=== PATIENT | male | born 1960 | race African-American/Black ===

== ENCOUNTER 2016-09-10 14:33 | Inpatient (IN) | payer MEDICARE, OTHER ==
[~2016-09-10] VITALS: Ht 185.4 cm; Wt 95.3 kg
[~2016-09-10 14:33] MED LIST: AMLO10TA80 PO; ATEN-42 PO; ATOR10TA69 PO; CALC667T5 PO; CINA30 PO; HYDR-3933 PO; INSASP SQ; LEVVL SQ; LOPE2CAP PO; METO10TA3 PO; NEPVIT PO; PIOG30TA27 PO
[2016-09-10] MEDS ORDERED: SODIUM CHLORIDE 0.9% 1,000 ML IV ONE (16:52)
[2016-09-10] MEDS ORDERED: MORPHINE SULFATE 4 MG/ML CPJ (NOT FOR IM USE) IV STA (16:52)
[2016-09-10] MEDS ORDERED: ONDANSETRON HCL 4MG/2ML VIAL IV STA (16:52)
[2016-09-10] MEDS ORDERED: FAMOTIDINE 20MG/2ML VIAL IV STA (16:52)
[2016-09-10 17:35] LABS: CHLORIDE 84 mEq/L (98-107); INDEX HEMOLYSI 1 (1-3); INDEX ICTERIC 1 (1-4); INDEX LIPEMIC 1 (1-3)
[2016-09-10 17:38] LABS: INR 1.1; PARTIAL THROMBOPLASTIN TIME 24.5 sec (24.0-34.0); PROTHROMBIN TIME 11.6 sec
[2016-09-10 17:43] LABS: ALANINE AMINOTRANSFERASE 23 IU/L (13-61); ANION GAP 23; BASOPHILS % 0.2 % (0.0-2.0); CALCIUM 10.7 mg/dL (8.5-10.1); CARBON DIOXIDE 27 mEq/L (21-32); HEMATOCRIT. 43.5 % (42.0-52.0); HEMOGLOBIN. 14.3 g/dL (14.0-18.0); LIPASE 346 IU/L (73-393); LYMPHOCYTES % 7.5 % (20.0-50.0); MEAN CORPUSCULAR HEMOGLOBIN 32.3 pg (28.0-32.0); MEAN CORPUSCULAR HGB CONC 32.8 g/dL (31.0-37.0); MEAN CORPUSCULAR VOLUME 98.4 fL (80.0-94.0); MEAN PLATELET VOLUME 8.6 fl (7.4-10.4); MONOCYTES % 5.3 % (2.0-8.0); PLATELET 212 x1000/uL (130-400); RED BLOOD CELL COUNT 4.42 mill/uL (4.7-6.1); RED CELL DISTRIBUTION WIDTH 19.1 % (11.6-14.6); UREA NITROGEN BLOOD 46 mg/dL (7-21); WHITE BLOOD COUNT 11.3 x1000/uL (4.5-11.0); eGFR 9 mL/min (>60)
[2016-09-10] MEDS ORDERED: MORPHINE SULFATE 2 MG/ML CPJ (NOT FOR IM USE) IV ONE (20:15)
[2016-09-10] MEDS ORDERED: LEVOFLOXACIN 750MG PREMIX 150 ML IV ONE (20:15)
[2016-09-10] MEDS ORDERED: ONDANSETRON HCL 4MG/2ML VIAL IV ONE (20:15)
[2016-09-10] MEDS ORDERED: METRONIDAZOLE 500 MG PREMIX 100 ML IV ONE (20:15)
[2016-09-10] MEDS ORDERED: METOCLOPRAMIDE HCL 10MG/2ML VIAL IV ONE (23:30)
[2016-09-10] MEDS ORDERED: INSULIN REGULAR (HUMULIN R) 300UNITS/3ML SUBCUT ONE (23:30)
[2016-09-10] MEDS ORDERED: GUAIFENESIN 200MG/10ML SUGAR FREE UDC PO PRN (23:45)
[2016-09-10] MEDS ORDERED: NA PHOS,M-B/NA PHOS,DI-BA ENEMA 118ML PR PRN (23:45)
[2016-09-10] MEDS ORDERED: MAGNESIUM/ALUMINUM HYDROXIDE/SIMETHICONE 30ML UDC PO PRN (23:45)
[2016-09-10] MEDS ORDERED: CLONIDINE 0.1MG TABLET PO PRN (23:45)
[2016-09-10] MEDS ORDERED: IPRATROPIUM/ALBUTEROL 0.5-3(2.5)MG/3ML NEB INH PRN (23:45)
[2016-09-10] MEDS ORDERED: DOCUSATE SODIUM 100MG CAPSULE PO PRN (23:45)
[2016-09-10] MEDS ORDERED: LORAZEPAM 2MG/ML CPJ IV PRN (23:45)
[2016-09-10] MEDS ORDERED: ACETAMINOPHEN 325MG TABLET PO PRN (23:45)
[2016-09-10] MEDS ORDERED: HYDROCODONE/ACETAMINOPHEN 10/325MG TABLET PO PRN (23:45)
[2016-09-10] MEDS ORDERED: DIPHENHYDRAMINE 50MG/ML VIAL IV PRN (23:45)
[2016-09-11] MEDS ORDERED: POTASSIUM CHLORIDE 20MEQ TABLET SR PO NR (00:25)
[2016-09-11] MEDS ORDERED: POTASSIUM CHLORIDE 20MEQ TABLET SR PO STA (00:29)
[2016-09-11 00:47] LABS: CALCIUM 9.9 mg/dL (8.5-10.1)
[2016-09-11] MEDS ORDERED: POTASSIUM CHLORIDE 20 MEQ/PACKET PO NR (01:00)
[2016-09-11 02:20] VITALS: BP 165/97
[2016-09-11] MEDS: ONDANSETRON HCL 4MG/2ML VIAL IV PRN ×3 (02:52→22:27)
[2016-09-11] MEDS: HYDROMORPHONE HCL/PF 2MG/ML CPJ IV PRN ×4 (02:53→22:28)
[2016-09-11] MEDS ORDERED: METRONIDAZOLE 500 MG PREMIX 100 ML IV SCH ×2 (06:00→14:00)
[2016-09-11] MEDS ORDERED: LOPERAMIDE HCL 2MG CAPSULE PO PRN (06:15)
[2016-09-11 07:25] LABS: CHLORIDE 93 mEq/L (98-107); INDEX HEMOLYSI 2 (1-3); INDEX ICTERIC 1 (1-4); INDEX LIPEMIC 1 (1-3)
[2016-09-11 08:00] VITALS: BP 132/89
[2016-09-11 08:06] LABS: ALANINE AMINOTRANSFERASE 21 IU/L (13-61); ALBUMIN 3.8 g/dL (3.4-5.0); ANION GAP 19; CALCIUM 9.1 mg/dL (8.5-10.1); CARBON DIOXIDE 25 mEq/L (21-32); HDL CHOLESTEROL 55 mg/dL (40-59); LDL CHOLESTEROL 80 mg/dL (5-100); TRIGLYCERIDE 120 mg/dL (0-150); UREA NITROGEN BLOOD 55 mg/dL (7-21); eGFR 8 mL/min (>60)
[2016-09-11] MEDS: ENOXAPARIN 30MG/0.3ML SYR SUBCUT SCH (09:03)
[2016-09-11] MEDS: ATORVASTATIN CALCIUM 10MG TABLET PO SCH (09:03)
[2016-09-11] MEDS: AMLODIPINE 10MG TABLET PO SCH (09:03)
[2016-09-11] MEDS: ATENOLOL 25MG TABLET PO SCH (09:04)
[2016-09-11] MEDS: CINACALCET HCL 30MG TABLET PO SCH (09:04)
[2016-09-11] MEDS: METOCLOPRAMIDE HCL 10MG TABLET PO SCH (09:04)
[2016-09-11 09:28] LABS: BASOPHILS % 0.3 % (0.0-2.0); HEMATOCRIT. 40.1 % (42.0-52.0); HEMOGLOBIN. 13.1 g/dL (14.0-18.0); LYMPHOCYTES % 16.4 % (20.0-50.0); MEAN CORPUSCULAR HGB CONC 32.6 g/dL (31.0-37.0); MEAN CORPUSCULAR VOLUME 98.4 fL (80.0-94.0); MEAN PLATELET VOLUME 8.2 fl (7.4-10.4); MONOCYTES % 7.6 % (2.0-8.0); NEUTROPHILS % 75.7 % (40.0-76.0); PLATELET 195 x1000/uL (130-400); RED BLOOD CELL COUNT 4.08 mill/uL (4.7-6.1); RED CELL DISTRIBUTION WIDTH 19.4 % (11.6-14.6); WHITE BLOOD COUNT 9.2 x1000/uL (4.5-11.0)
[2016-09-11] MEDS: PIOGLITAZONE 30MG TABLET PO SCH (10:47)
[2016-09-11 12:00] VITALS: BP 142/88
[2016-09-11] MEDS ORDERED: DEXTROSE 50% WATER 50ML SYRINGE IV PRN (12:45)
[2016-09-11] MEDS: BLOOD SUGAR DIAGNOSTIC STRIP TEST SCH ×3 (12:59→21:00)
[2016-09-11] MEDS: INSULIN LISPRO 100 UNITS/ML SUBCUT SCH ×3 (13:02→22:19)
[2016-09-11] MEDS: METRONIDAZOLE 500 MG PREMIX 100 ML IV SCH (13:04)
[2016-09-11 16:00] VITALS: BP 104/69
[2016-09-11 20:00] VITALS: BP 96/50
[2016-09-11] MEDS: INSULIN DETEMIR UD 100 UNITS/ML SYR SUBCUT SCH (22:18)
[2016-09-12] VITALS: BP 88/50
[2016-09-12 04:00] VITALS: BP 118/84
[2016-09-12] MEDS: METRONIDAZOLE 500 MG PREMIX 100 ML IV SCH ×2 (04:13→14:09)
[2016-09-12] MEDS: INSULIN LISPRO 100 UNITS/ML SUBCUT SCH ×4 (07:50→22:40)
[2016-09-12 08:00] VITALS: BP 113/69
[2016-09-12] MEDS: BLOOD SUGAR DIAGNOSTIC STRIP TEST SCH ×4 (08:14→21:00)
[2016-09-12] MEDS: METOCLOPRAMIDE HCL 10MG TABLET PO SCH (08:31)
[2016-09-12] MEDS: CINACALCET HCL 30MG TABLET PO SCH (08:31)
[2016-09-12] MEDS: ATORVASTATIN CALCIUM 10MG TABLET PO SCH (08:32)
[2016-09-12] MEDS: PIOGLITAZONE 30MG TABLET PO SCH (08:32)
[2016-09-12] MEDS: ATENOLOL 25MG TABLET PO SCH (08:55)
[2016-09-12] MEDS: AMLODIPINE 10MG TABLET PO SCH (08:55)
[2016-09-12] MEDS: ENOXAPARIN 30MG/0.3ML SYR SUBCUT SCH (09:16)
[2016-09-12] MEDS: HYDROMORPHONE HCL/PF 2MG/ML CPJ IV PRN ×2 (10:18→21:02)
[2016-09-12] MEDS: ONDANSETRON HCL 4MG/2ML VIAL IV PRN ×2 (10:18→21:02)
[2016-09-12 12:09] VITALS: BP 111/70
[2016-09-12 12:43] LABS: BASOPHILS % 0.4 % (0.0-2.0); EOSINOPHILS % 0.1 % (0.0-5.0); HEMATOCRIT. 37.2 % (42.0-52.0); HEMOGLOBIN. 12.3 g/dL (14.0-18.0); LYMPHOCYTES % 19.6 % (20.0-50.0); MEAN CORPUSCULAR HEMOGLOBIN 32.4 pg (28.0-32.0); MEAN CORPUSCULAR VOLUME 98.2 fL (80.0-94.0); MEAN PLATELET VOLUME 8.7 fl (7.4-10.4); MONOCYTES % 8.5 % (2.0-8.0); NEUTROPHILS % 71.4 % (40.0-76.0); PLATELET 173 x1000/uL (130-400); RED BLOOD CELL COUNT 3.79 mill/uL (4.7-6.1); WHITE BLOOD COUNT 7.4 x1000/uL (4.5-11.0)
[2016-09-12 12:53] LABS: CALCIUM 8.3 mg/dL (8.5-10.1)
[2016-09-12 16:00] VITALS: BP 85/50
[2016-09-12] MEDS ORDERED: LEVOFLOXACIN 250MG PREMIX 50 ML IV SCH ×2 (16:00→20:00)
[2016-09-12 20:00] VITALS: BP 102/73
[2016-09-12] MEDS: INSULIN DETEMIR UD 100 UNITS/ML SYR SUBCUT SCH (22:40)
[2016-09-13] VITALS: BP 107/75
[2016-09-13] MEDS: METRONIDAZOLE 500 MG PREMIX 100 ML IV SCH (01:59)
[2016-09-13 04:00] VITALS: BP 99/60
[2016-09-13] MEDS: HYDROMORPHONE HCL/PF 2MG/ML CPJ IV PRN (04:11)
[2016-09-13 06:09] LABS: BASOPHILS % 0.5 % (0.0-2.0); EOSINOPHILS % 0.3 % (0.0-5.0); HEMATOCRIT. 36.4 % (42.0-52.0); HEMOGLOBIN. 11.8 g/dL (14.0-18.0); LYMPHOCYTES % 24.7 % (20.0-50.0); MEAN CORPUSCULAR HEMOGLOBIN 32.2 pg (28.0-32.0); MEAN CORPUSCULAR HGB CONC 32.5 g/dL (31.0-37.0); MEAN CORPUSCULAR VOLUME 99.2 fL (80.0-94.0); MEAN PLATELET VOLUME 8.3 fl (7.4-10.4); MONOCYTES % 8.8 % (2.0-8.0); NEUTROPHILS % 65.7 % (40.0-76.0); PLATELET 172 x1000/uL (130-400); RED BLOOD CELL COUNT 3.68 mill/uL (4.7-6.1); RED CELL DISTRIBUTION WIDTH 18.9 % (11.6-14.6); WHITE BLOOD COUNT 7.5 x1000/uL (4.5-11.0)
[2016-09-13] MEDS: BLOOD SUGAR DIAGNOSTIC STRIP TEST SCH (06:22)
[2016-09-13 06:52] LABS: CALCIUM 8.1 mg/dL (8.5-10.1)
[2016-09-13 08:00] VITALS: BP 106/64
[2016-09-13] MEDS: CINACALCET HCL 30MG TABLET PO SCH (08:33)
[2016-09-13] MEDS: PIOGLITAZONE 30MG TABLET PO SCH (08:33)
[2016-09-13] MEDS: ATORVASTATIN CALCIUM 10MG TABLET PO SCH (08:33)
[2016-09-13] MEDS: METOCLOPRAMIDE HCL 10MG TABLET PO SCH (08:33)
[2016-09-13] MEDS: ATENOLOL 25MG TABLET PO SCH (08:35)
[2016-09-13] MEDS: AMLODIPINE 10MG TABLET PO SCH (08:35)
[2016-09-13] MEDS: INSULIN LISPRO 100 UNITS/ML SUBCUT SCH (08:37)
[2016-09-13] MEDS: ENOXAPARIN 30MG/0.3ML SYR SUBCUT SCH (08:39)
[2016-09-13] MEDS ORDERED: POTASSIUM CHLORIDE 20MEQ TABLET SR PO NR (10:00)
[2016-09-13 11:18] VITALS: BP 106/64
[2016-09-13 12:00] VITALS: BP 109/59
== END 2016-09-13 12:25 | disposition home or self-care (01) | DRG 73 ==
LOC: ER 15:52 → 6EST 21:22
PROVIDERS: ADMIT Internal Medicine; ATTEND Internal Medicine
PROC: 5A1D00Z (ICD-10-PCS; principal; 2016-09-12)
DX: E11.43 Type 2 diabetes mellitus with diabetic autonomic (poly)neuropathy (principal); N18.6 End stage renal disease; K86.1 Other chronic pancreatitis; E46 Unspecified protein-calorie malnutrition; I12.0 Hypertensive chronic kidney disease with stage 5 chronic kidney disease or end stage renal disease; K56.7 Ileus, unspecified; K31.84 Gastroparesis; E87.6 Hypokalemia; E86.0 Dehydration; E83.52 Hypercalcemia; D64.9 Anemia, unspecified; E11.22 Type 2 diabetes mellitus with diabetic chronic kidney disease; E11.42 Type 2 diabetes mellitus with diabetic polyneuropathy; E78.5 Hyperlipidemia, unspecified; G89.4 Chronic pain syndrome; K52.9 Noninfective gastroenteritis and colitis, unspecified; Z86.718 Personal history of other venous thrombosis and embolism; Z99.2 Dependence on renal dialysis; Z95.1 Presence of aortocoronary bypass graft; Z68.27 Body mass index [BMI] 27.0-27.9, adult; Z79.4 Long term (current) use of insulin; Z79.899 Other long term (current) drug therapy; I25.2 Old myocardial infarction
CPT/HCPCS: 36415; 74176; 80048; 80053; 80061; 82962; 83690; 85025; 85610; 85730; 93005; 96365; 96367; 96375; 96376; 99285; C1893; J1170; J1650; J1815; J1956; J2270; J2405; J2765; J3490; J7030; J7040; J8597

== ENCOUNTER → 2016-12-20 | Outpatient (CLI) | payer MEDICARE, OTHER | END | disposition home or self-care (01) | LOC: RAD 09:30 | PROVIDERS: ATTEND Specialist | DX: M25.532 Pain in left wrist (principal); M25.571 Pain in right ankle and joints of right foot; M77.51 Other enthesopathy of right foot and ankle; M79.89 Other specified soft tissue disorders | CPT/HCPCS: 73110; 73610 ==

== ENCOUNTER 2017-03-08 05:09 | Inpatient (IN) | payer MEDICARE, OTHER ==
[~2017-03-08] VITALS: Ht 185.4 cm; Wt 91.2 kg
[~2017-03-08 05:09] MED LIST changes: -HYDR-3933 PO; +HYDR-4009 PO
[2017-03-08] MEDS ORDERED: ONDANSETRON HCL 4MG/2ML VIAL IV STA (08:17)
[2017-03-08] MEDS ORDERED: MORPHINE SULFATE 4 MG/ML CPJ (NOT FOR IM USE) IV STA (08:17)
[2017-03-08 09:14] LABS: BASOPHILS % 0.5 % (0.0-2.0); EOSINOPHILS % 0.4 % (0.0-5.0); HEMOGLOBIN. 7.5 g/dL (14.0-18.0); LYMPHOCYTES % 18.7 % (20.0-50.0); MEAN CORPUSCULAR HEMOGLOBIN 34.7 pg (28.0-32.0); MEAN CORPUSCULAR VOLUME 105.8 fL (80.0-94.0); MEAN PLATELET VOLUME 7.5 fl (7.4-10.4); MONOCYTES % 4.7 % (2.0-8.0); NEUTROPHILS % 75.7 % (40.0-76.0); PLATELET 246 x1000/uL (130-400); RED BLOOD CELL COUNT 2.17 mill/uL (4.7-6.1); RED CELL DISTRIBUTION WIDTH 20.3 % (11.6-14.6)
[2017-03-08 09:29] LABS: CARBON DIOXIDE 28 mEq/L (21-32); CHLORIDE 98 mEq/L (98-107)
[2017-03-08 09:55] LABS: INR 2.9; PARTIAL THROMBOPLASTIN TIME 32.5 sec (23.4-31.0); PROTHROMBIN TIME 29.8 sec (9.4-11.6)
[2017-03-08] MEDS ORDERED: IOHEXOL-300 100 ML BOTTLE ONE (14:12)
[2017-03-08] MEDS ORDERED: SODIUM CHLORIDE 0.9% 10ML VIAL ONE (14:12)
[2017-03-08] MEDS: MORPHINE SULFATE 4 MG/ML CPJ (NOT FOR IM USE) IV PRN (15:20)
[2017-03-08 15:30] VITALS: BP 102/56
[2017-03-08 16:00] VITALS: BP 102/56
[2017-03-08] MEDS: ONDANSETRON HCL 4MG/2ML VIAL IV PRN (16:35)
[2017-03-08] MEDS ORDERED: SODIUM CHLORIDE 0.9% 250 ML IV ONE (21:45)
[2017-03-08 23:00] VITALS: BP 85/42
[2017-03-08 23:22] VITALS: BP 87/52
[2017-03-09] VITALS (16 sets, daily range): BP systolic 90–126; BP diastolic 51–64
[2017-03-09] MEDS: MORPHINE SULFATE 4 MG/ML CPJ (NOT FOR IM USE) IV PRN ×3 (05:53→22:29)
[2017-03-09] MEDS: ONDANSETRON HCL 4MG/2ML VIAL IV PRN ×2 (05:53→15:58)
[2017-03-09 07:30] LABS: BASOPHILS % 0.5 % (0.0-2.0); EOSINOPHILS % 0.8 % (0.0-5.0); LYMPHOCYTES % 24.3 % (20.0-50.0); MEAN CORPUSCULAR VOLUME 103.9 fL (80.0-94.0); MEAN PLATELET VOLUME 7.6 fl (7.4-10.4); MONOCYTES % 6.4 % (2.0-8.0); PLATELET 190 x1000/uL (130-400); RED CELL DISTRIBUTION WIDTH 22.4 % (11.6-14.6)
[2017-03-09 07:37] LABS: HEMATOCRIT. 19.7 % (42.0-52.0); HEMOGLOBIN. 6.4 g/dL (14.0-18.0)
[2017-03-09] MEDS ORDERED: DEXTROSE 50% WATER 50ML SYRINGE IV PRN (09:30)
[2017-03-09] MEDS: CINACALCET HCL 30MG TABLET PO SCH (09:30)
[2017-03-09] MEDS: FOLIC ACID/VITAMIN B COMP W-C TABLET PO SCH (09:30)
[2017-03-09] MEDS: PANTOPRAZOLE SODIUM 40 MG/VIAL IV SCH ×2 (10:45→21:52)
[2017-03-09] MEDS: INSULIN LISPRO 100 UNITS/ML SUBCUT SCH ×3 (12:24→21:00)
[2017-03-09] MEDS: BLOOD SUGAR DIAGNOSTIC STRIP TEST SCH ×3 (12:24→21:52)
[2017-03-09] MEDS ORDERED: SODIUM CHLORIDE 0.9% 10ML VIAL ONE (16:04)
[2017-03-09] MEDS ORDERED: SIMETHICONE 40 MG/0.6 ML 30ML ONE ×2 (16:04→16:50)
[2017-03-09 16:07] LABS: PLATELET ESTIMATE NORMAL
[2017-03-09] MEDS ORDERED: MIDAZOLAM HCL 5 MG/5 ML VIAL ONE (16:51)
[2017-03-09] MEDS ORDERED: FENTANYL CITRATE/PF 50MCG/ML 2ML VIAL ONE (16:51)
[2017-03-09] MEDS ORDERED: MIDAZOLAM HCL 2 MG/2 ML VIAL IV PRN (17:03)
[2017-03-09] MEDS ORDERED: FENTANYL CITRATE/PF 50MCG/ML 2ML VIAL IV PRN (17:05)
[2017-03-09] MEDS ORDERED: EPINEPHRINE 0.1MG/ML (1:10,000) 10ML SYR ONE (17:23)
[2017-03-09 18:46] LABS: HEMOGLOBIN 6.8 g/dL (14.0-18.0)
[2017-03-09 18:47] LABS: HEMATOCRIT 20.6 % (42.0-52.0)
[2017-03-09] MEDS: ATORVASTATIN CALCIUM 10MG TABLET PO SCH (21:52)
[2017-03-09] MEDS: INSULIN DETEMIR UD 100 UNITS/ML SYR SUBCUT SCH (21:53)
[2017-03-10] VITALS (17 sets, daily range): BP systolic 94–125; BP diastolic 50–84
[2017-03-10] MEDS ORDERED: DIPHENHYDRAMINE 50MG/ML VIAL IV PRN (01:45)
[2017-03-10] MEDS: DIPHENHYDRAMINE 50MG CAPSULE PO PRN ×2 (01:52→14:58)
[2017-03-10] MEDS: BLOOD SUGAR DIAGNOSTIC STRIP TEST SCH ×4 (06:27→21:37)
[2017-03-10] MEDS: OMEPRAZOLE 20MG CAPSULE EXTENDED RELEASE PO SCH ×2 (06:38→21:39)
[2017-03-10] MEDS: INSULIN LISPRO 100 UNITS/ML SUBCUT SCH ×4 (07:50→21:00)
[2017-03-10] MEDS: CINACALCET HCL 30MG TABLET PO SCH (08:12)
[2017-03-10] MEDS: FOLIC ACID/VITAMIN B COMP W-C TABLET PO SCH (08:12)
[2017-03-10] MEDS: PANTOPRAZOLE SODIUM 40 MG/VIAL IV SCH (08:12)
[2017-03-10 09:07] LABS: BASOPHILS % 0.2 % (0.0-2.0); EOSINOPHILS % 1.5 % (0.0-5.0); HEMATOCRIT. 28.9 % (42.0-52.0); HEMOGLOBIN. 9.6 g/dL (14.0-18.0); LYMPHOCYTES % 37.5 % (20.0-50.0); MEAN CORPUSCULAR HEMOGLOBIN 32.8 pg (28.0-32.0); MEAN PLATELET VOLUME 7.6 fl (7.4-10.4); MONOCYTES % 8.3 % (2.0-8.0); NEUTROPHILS % 52.5 % (40.0-76.0); PLATELET 194 x1000/uL (130-400); RED BLOOD CELL COUNT 2.92 mill/uL (4.7-6.1); RED CELL DISTRIBUTION WIDTH 19.5 % (11.6-14.6)
[2017-03-10] MEDS: CLOPIDOGREL 75MG TABLET PO SCH (14:37)
[2017-03-10] MEDS: MORPHINE SULFATE 4 MG/ML CPJ (NOT FOR IM USE) IV PRN (14:58)
[2017-03-10 15:58] LABS: HEMATOCRIT 33.8 % (42.0-52.0); HEMOGLOBIN 11.4 g/dL (14.0-18.0)
[2017-03-10] MEDS: ATORVASTATIN CALCIUM 10MG TABLET PO SCH (21:39)
[2017-03-10] MEDS: CARVEDILOL 3.125 MG TABLET PO SCH (21:39)
[2017-03-10] MEDS: INSULIN DETEMIR UD 100 UNITS/ML SYR SUBCUT SCH (21:43)
[2017-03-10 23:06] LABS: HEMATOCRIT 27.7 % (42.0-52.0); HEMOGLOBIN 9.4 g/dL (14.0-18.0)
[2017-03-11 00:07] VITALS: BP 98/51
[2017-03-11 04:00] VITALS: BP 128/64
[2017-03-11] MEDS: BLOOD SUGAR DIAGNOSTIC STRIP TEST SCH ×4 (06:21→21:44)
[2017-03-11] MEDS: OMEPRAZOLE 20MG CAPSULE EXTENDED RELEASE PO SCH ×2 (06:22→21:50)
[2017-03-11] MEDS: INSULIN LISPRO 100 UNITS/ML SUBCUT SCH ×4 (06:50→21:00)
[2017-03-11 07:00] LABS: HEMATOCRIT 26.7 % (42.0-52.0); HEMOGLOBIN 8.9 g/dL (14.0-18.0)
[2017-03-11 08:00] VITALS: BP 126/68
[2017-03-11] MEDS: CLOPIDOGREL 75MG TABLET PO SCH ×2 (08:01→11:25)
[2017-03-11] MEDS: CARVEDILOL 3.125 MG TABLET PO SCH ×2 (08:02→21:00)
[2017-03-11] MEDS: FOLIC ACID/VITAMIN B COMP W-C TABLET PO SCH (08:02)
[2017-03-11] MEDS: CINACALCET HCL 30MG TABLET PO SCH (08:03)
[2017-03-11] MEDS: LOSARTAN POTASSIUM 25 MG TABLET PO SCH (08:03)
[2017-03-11] MEDS: ONDANSETRON HCL 4MG/2ML VIAL IV PRN ×2 (10:26→17:31)
[2017-03-11] MEDS: MORPHINE SULFATE 4 MG/ML CPJ (NOT FOR IM USE) IV PRN ×3 (10:26→21:45)
[2017-03-11 12:00] VITALS: BP 101/50
[2017-03-11 16:00] VITALS: BP 100/60
[2017-03-11 17:24] LABS: HEMATOCRIT 29.9 % (42.0-52.0); HEMOGLOBIN 9.7 g/dL (14.0-18.0)
[2017-03-11 17:29] LABS: INR 1.6; PROTHROMBIN TIME 16.1 sec (9.4-11.6)
[2017-03-11 20:00] VITALS: BP 98/62
[2017-03-11] MEDS: ATORVASTATIN CALCIUM 10MG TABLET PO SCH (21:45)
[2017-03-11] MEDS: INSULIN DETEMIR UD 100 UNITS/ML SYR SUBCUT SCH (22:24)
[2017-03-11 23:07] LABS: HEMATOCRIT 27.6 % (42.0-52.0); HEMOGLOBIN 9.3 g/dL (14.0-18.0)
[2017-03-12] VITALS: BP 127/64
[2017-03-12 04:00] VITALS: BP 120/68
[2017-03-12] MEDS: ONDANSETRON HCL 4MG/2ML VIAL IV PRN (05:16)
[2017-03-12] MEDS: MORPHINE SULFATE 4 MG/ML CPJ (NOT FOR IM USE) IV PRN ×3 (05:22→22:19)
[2017-03-12] MEDS: OMEPRAZOLE 20MG CAPSULE EXTENDED RELEASE PO SCH ×2 (06:32→22:16)
[2017-03-12] MEDS: BLOOD SUGAR DIAGNOSTIC STRIP TEST SCH ×4 (06:32→21:00)
[2017-03-12 06:53] LABS: BASOPHILS % 0.5 % (0.0-2.0); EOSINOPHILS % 2.1 % (0.0-5.0); HEMATOCRIT. 28.3 % (42.0-52.0); HEMOGLOBIN. 9.5 g/dL (14.0-18.0); LYMPHOCYTES % 16.8 % (20.0-50.0); MEAN CORPUSCULAR HEMOGLOBIN 33.2 pg (28.0-32.0); MEAN CORPUSCULAR VOLUME 98.5 fL (80.0-94.0); MEAN PLATELET VOLUME 7.3 fl (7.4-10.4); MONOCYTES % 8.7 % (2.0-8.0); NEUTROPHILS % 71.9 % (40.0-76.0); PLATELET 150 x1000/uL (130-400); RED BLOOD CELL COUNT 2.87 mill/uL (4.7-6.1); RED CELL DISTRIBUTION WIDTH 20.3 % (11.6-14.6)
[2017-03-12] MEDS: INSULIN LISPRO 100 UNITS/ML SUBCUT SCH ×4 (07:40→21:00)
[2017-03-12] MEDS: LOSARTAN POTASSIUM 25 MG TABLET PO SCH (09:00)
[2017-03-12] MEDS: CARVEDILOL 3.125 MG TABLET PO SCH ×2 (09:00→22:15)
[2017-03-12 09:07] VITALS: BP 104/59
[2017-03-12] MEDS: FOLIC ACID/VITAMIN B COMP W-C TABLET PO SCH (09:28)
[2017-03-12] MEDS: CLOPIDOGREL 75MG TABLET PO SCH (09:28)
[2017-03-12] MEDS: CINACALCET HCL 30MG TABLET PO SCH (09:28)
[2017-03-12 12:21] VITALS: BP 109/72
[2017-03-12 16:20] VITALS: BP 117/80
[2017-03-12 20:00] VITALS: BP 132/83
[2017-03-12] MEDS: ATORVASTATIN CALCIUM 10MG TABLET PO SCH (22:16)
[2017-03-12] MEDS: INSULIN DETEMIR UD 100 UNITS/ML SYR SUBCUT SCH (22:29)
[2017-03-13] VITALS: BP 118/80
[2017-03-13] MEDS: BLOOD SUGAR DIAGNOSTIC STRIP TEST SCH ×2 (06:58→13:05)
[2017-03-13] MEDS: OMEPRAZOLE 20MG CAPSULE EXTENDED RELEASE PO SCH (07:09)
[2017-03-13] MEDS: INSULIN LISPRO 100 UNITS/ML SUBCUT SCH ×2 (07:50→12:50)
[2017-03-13 08:00] VITALS: BP 127/64
[2017-03-13 08:04] LABS: BASOPHILS % 0.4 % (0.0-2.0); EOSINOPHILS % 2.4 % (0.0-5.0); HEMATOCRIT. 26.7 % (42.0-52.0); HEMOGLOBIN. 8.9 g/dL (14.0-18.0); LYMPHOCYTES % 20.6 % (20.0-50.0); MEAN CORPUSCULAR HEMOGLOBIN 33.4 pg (28.0-32.0); MEAN CORPUSCULAR VOLUME 99.6 fL (80.0-94.0); MEAN PLATELET VOLUME 7.8 fl (7.4-10.4); MONOCYTES % 7.9 % (2.0-8.0); NEUTROPHILS % 68.7 % (40.0-76.0); PLATELET 145 x1000/uL (130-400); RED BLOOD CELL COUNT 2.68 mill/uL (4.7-6.1); RED CELL DISTRIBUTION WIDTH 19.4 % (11.6-14.6)
[2017-03-13] MEDS: CARVEDILOL 3.125 MG TABLET PO SCH (09:00)
[2017-03-13] MEDS: CINACALCET HCL 30MG TABLET PO SCH (09:00)
[2017-03-13] MEDS: FOLIC ACID/VITAMIN B COMP W-C TABLET PO SCH (09:00)
[2017-03-13] MEDS: LOSARTAN POTASSIUM 25 MG TABLET PO SCH (09:00)
[2017-03-13] MEDS: CLOPIDOGREL 75MG TABLET PO SCH (09:00)
[2017-03-13 12:00] VITALS: BP 118/60
[2017-03-13] MEDS: ONDANSETRON HCL 4MG/2ML VIAL IV PRN (13:39)
[2017-03-13 16:00] VITALS: BP 119/78
== END 2017-03-13 18:20 | disposition home or self-care (01) | DRG 377 ==
LOC: ER 05:32 → EDBEDREQ 13:47 → ENRESERV 13:52 → 6WST 15:43
PROVIDERS: ADMIT Internal Medicine; ATTEND Internal Medicine
PROC: 5A1D60Z (ICD-10-PCS; 2017-03-08)
PROC: 30233N1 Transfusion of Nonautologous Red Blood Cells into Peripheral Vein, Percutaneous Approach (ICD-10-PCS; 2017-03-08)
PROC: 0W3P8ZZ Control Bleeding in Gastrointestinal Tract, Via Natural or Artificial Opening Endoscopic (ICD-10-PCS; 2017-03-09)
PROC: 0DB68ZX Excision of Stomach, Via Natural or Artificial Opening Endoscopic, Diagnostic (ICD-10-PCS; 2017-03-09)
PROC: 3E0G8GC Introduction of Other Therapeutic Substance into Upper GI, Via Natural or Artificial Opening Endoscopic (ICD-10-PCS; principal; 2017-03-09 16:00)
DX: K25.0 Acute gastric ulcer with hemorrhage (principal); N18.6 End stage renal disease; I13.2 Hypertensive heart and chronic kidney disease with heart failure and with stage 5 chronic kidney disease, or end stage renal disease; E11.22 Type 2 diabetes mellitus with diabetic chronic kidney disease; D68.9 Coagulation defect, unspecified; I27.2 Other secondary pulmonary hypertension; K85.90 Acute pancreatitis without necrosis or infection, unspecified; D62 Acute posthemorrhagic anemia; I50.30 Unspecified diastolic (congestive) heart failure; K29.70 Gastritis, unspecified, without bleeding; D53.9 Nutritional anemia, unspecified; E78.5 Hyperlipidemia, unspecified; I25.10 Atherosclerotic heart disease of native coronary artery without angina pectoris; I25.5 Ischemic cardiomyopathy; Z79.01 Long term (current) use of anticoagulants; Z79.02 Long term (current) use of antithrombotics/antiplatelets; Z79.4 Long term (current) use of insulin; I25.2 Old myocardial infarction; Z79.82 Long term (current) use of aspirin; Z99.2 Dependence on renal dialysis; Z86.718 Personal history of other venous thrombosis and embolism; Z79.84 Long term (current) use of oral hypoglycemic drugs; Z95.1 Presence of aortocoronary bypass graft; Z95.5 Presence of coronary angioplasty implant and graft; Z79.899 Other long term (current) drug therapy
CPT/HCPCS: 36415; 71010; 74177; 80048; 80053; 82150; 82962; 83605; 83690; 83735; 85014; 85018; 85025; 85610; 85730; 86677; 86850; 86900; 86920; 87040; 93005; 93306; 93970; 96374; 96375; 99152; 99153; 99285; A4216; C1893; C9113; J0171; J1815; J2250; J2270; J2405; J3010; J7030; J7050; P9016; Q0163; Q9967

== ENCOUNTER 2017-06-25 10:52 | Emergency (ER) | payer MEDICARE, OTHER ==
[~2017-06-25] VITALS: Ht 185.4 cm; Wt 92.0 kg
[2017-06-25] MEDS ORDERED: MORPHINE SULFATE 4 MG/ML CPJ (NOT FOR IM USE) IV STA (11:25)
[2017-06-25] MEDS ORDERED: SODIUM CHLORIDE 0.9% 1,000 ML IV ONE (11:25)
[2017-06-25] MEDS ORDERED: ONDANSETRON HCL 4MG/2ML VIAL IV STA (11:25)
[2017-06-25 13:03] LABS: BASOPHILS % 0.3 % (0.0-2.0); EOSINOPHILS % 0.1 % (0.0-5.0); HEMATOCRIT. 46.8 % (42.0-52.0); HEMOGLOBIN. 15.1 g/dL (14.0-18.0); LYMPHOCYTES % 18.9 % (20.0-50.0); MEAN CORPUSCULAR HEMOGLOBIN 32.5 pg (28.0-32.0); MEAN CORPUSCULAR VOLUME 100.7 fL (80.0-94.0); MEAN PLATELET VOLUME 8.2 fl (7.4-10.4); MONOCYTES % 8.8 % (2.0-8.0); NEUTROPHILS % 71.9 % (40.0-76.0); PLATELET 211 x1000/uL (130-400); RED BLOOD CELL COUNT 4.65 mill/uL (4.7-6.1); RED CELL DISTRIBUTION WIDTH 18.7 % (11.6-14.6)
[2017-06-25 13:05] LABS: CHLORIDE 90 mEq/L (98-107)
[2017-06-25 13:07] LABS: INR 1.1
[2017-06-25 13:14] LABS: CARBON DIOXIDE 27 mEq/L (21-32)
[2017-06-25 15:30] VITALS: BP 140/80
== END 2017-06-25 16:19 | disposition home or self-care (01) ==
LOC: ER 11:36
DX: R10.13 Epigastric pain (principal); M48.07 Spinal stenosis, lumbosacral region; N28.1 Cyst of kidney, acquired; F12.10 Cannabis abuse, uncomplicated; E11.22 Type 2 diabetes mellitus with diabetic chronic kidney disease; I12.0 Hypertensive chronic kidney disease with stage 5 chronic kidney disease or end stage renal disease; N18.6 End stage renal disease; I25.2 Old myocardial infarction; Z99.2 Dependence on renal dialysis; Z79.4 Long term (current) use of insulin; Z95.1 Presence of aortocoronary bypass graft
CPT/HCPCS: 36415; 74176; 80053; 83690; 85025; 85610; 96361; 96374; 96375; 99285; J2270; J2405; J7030

== ENCOUNTER 2017-08-02 08:36 | Inpatient (IN) | payer MEDICARE ==
[~2017-08-02] VITALS: Ht 185.4 cm; Wt 99.8 kg
[2017-08-02] MEDS ORDERED: HYDROCODONE/ACETAMINOPHEN 5/325MG TABLET PO ONE (11:45)
[2017-08-02 14:39] LABS: EOSINOPHILS % 1.4 % (0.0-5.0); HEMATOCRIT. 29.9 % (42.0-52.0); HEMOGLOBIN. 9.6 g/dL (14.0-18.0); LYMPHOCYTES % 22.9 % (20.0-50.0); MEAN CORPUSCULAR HEMOGLOBIN 33.6 pg (28.0-32.0); MEAN PLATELET VOLUME 7.2 fl (7.4-10.4); MONOCYTES % 9.8 % (2.0-8.0); NEUTROPHILS % 64.9 % (40.0-76.0); PLATELET 247 x1000/uL (130-400); RED BLOOD CELL COUNT 2.85 mill/uL (4.7-6.1); RED CELL DISTRIBUTION WIDTH 21.6 % (11.6-14.6)
[2017-08-02 14:50] LABS: PARTIAL THROMBOPLASTIN TIME 25.9 sec (23.4-31.0); PROTHROMBIN TIME 10.7 sec (9.4-11.6)
[2017-08-02 14:54] LABS: CHLORIDE 95 mEq/L (98-107)
[2017-08-02] MEDS ORDERED: MORPHINE SULFATE 2 MG/ML CPJ (NOT FOR IM USE) IV ONE (19:00)
[2017-08-02] MEDS ORDERED: HEPARIN 5000 UNITS/ML VIAL SUBCUT ONE (19:30)
[2017-08-02] MEDS ORDERED: GUAIFENESIN 200MG/10ML SUGAR FREE UDC PO PRN (22:00)
[2017-08-02] MEDS ORDERED: IPRATROPIUM/ALBUTEROL 0.5-3(2.5)MG/3ML NEB INH PRN (22:00)
[2017-08-02] MEDS ORDERED: ACETAMINOPHEN 325MG TABLET PO PRN (22:00)
[2017-08-02] MEDS ORDERED: CLONIDINE 0.1MG TABLET PO PRN (22:00)
[2017-08-02] MEDS ORDERED: DOCUSATE SODIUM 100MG CAPSULE PO PRN (22:00)
[2017-08-02] MEDS ORDERED: NA PHOS,M-B/NA PHOS,DI-BA ENEMA 118ML PR PRN (22:00)
[2017-08-02] MEDS ORDERED: DIPHENHYDRAMINE 50MG/ML VIAL IV PRN (22:00)
[2017-08-02] MEDS ORDERED: LORAZEPAM 2MG/ML CPJ IV PRN (22:00)
[2017-08-02] MEDS ORDERED: ONDANSETRON HCL 4MG/2ML VIAL IV PRN (22:00)
[2017-08-02] MEDS ORDERED: MAGNESIUM/ALUMINUM HYDROXIDE/SIMETHICONE 30ML UDC PO PRN (22:00)
[2017-08-03 00:30] VITALS: BP 140/81
[2017-08-03] MEDS ORDERED: DEXTROSE 50% WATER 50ML SYRINGE IV PRN (00:45)
[2017-08-03] MEDS: MORPHINE SULFATE 4 MG/ML CPJ (NOT FOR IM USE) IV PRN ×3 (01:50→18:31)
[2017-08-03] MEDS ORDERED: ENOXAPARIN 100MG/ML SYR SUBCUT SCH (02:00)
[2017-08-03] MEDS ORDERED: HYDROCODONE/ACETAMINOPHEN 10/325MG TABLET PO PRN (02:45)
[2017-08-03] MEDS ORDERED: LOPERAMIDE HCL 2MG CAPSULE PO PRN (02:45)
[2017-08-03 04:00] VITALS: BP 108/56
[2017-08-03] MEDS ORDERED: INFLUENZA VIRUS VACCINE 0.5ML SYR IM ONE (06:00)
[2017-08-03] MEDS: BLOOD SUGAR DIAGNOSTIC STRIP TEST SCH ×4 (06:04→20:16)
[2017-08-03] MEDS: INSULIN LISPRO 100 UNITS/ML SUBCUT SCH ×4 (06:08→21:22)
[2017-08-03 06:12] LABS: BASOPHILS % 0.7 % (0.0-2.0); EOSINOPHILS % 1.8 % (0.0-5.0); HEMATOCRIT. 28.3 % (42.0-52.0); HEMOGLOBIN. 9.7 g/dL (14.0-18.0); LYMPHOCYTES % 23.2 % (20.0-50.0); MEAN CORPUSCULAR VOLUME 105.2 fL (80.0-94.0); MEAN PLATELET VOLUME 7.4 fl (7.4-10.4); MONOCYTES % 11.1 % (2.0-8.0); NEUTROPHILS % 63.2 % (40.0-76.0); PLATELET 218 x1000/uL (130-400); RED BLOOD CELL COUNT 2.69 mill/uL (4.7-6.1); RED CELL DISTRIBUTION WIDTH 22.1 % (11.6-14.6)
[2017-08-03] MEDS: HYDROCODONE/ACETAMINOPHEN 10/325MG TABLET PO PRN ×2 (06:12→21:23)
[2017-08-03 06:38] LABS: CHLORIDE 95 mEq/L (98-107); HDL CHOLESTEROL 47 mg/dL (40-59); LDL CHOLESTEROL 101 mg/dL (5-100); T4 FREE 1.13 ng/dL (0.76-1.46); TROPONIN I < 0.02 ng/mL (0.00-0.04)
[2017-08-03] MEDS ORDERED: MEDICATION NOT ON FORMULARY EA (Calcium Acetate 667 MG) PO SCH (07:40)
[2017-08-03 08:00] VITALS: BP 101/56
[2017-08-03] MEDS: CINACALCET HCL 30MG TABLET PO SCH (08:56)
[2017-08-03] MEDS: FOLIC ACID/VITAMIN B COMP W-C TABLET PO SCH (08:57)
[2017-08-03] MEDS: CALCIUM ACETATE 667MG CAPSULE PO SCH ×3 (08:57→18:34)
[2017-08-03] MEDS: PIOGLITAZONE 30MG TABLET PO SCH (09:00)
[2017-08-03] MEDS: AMLODIPINE 10MG TABLET PO SCH (09:00)
[2017-08-03] MEDS: ASPIRIN 81MG EC TABLET PO SCH (09:00)
[2017-08-03 12:00] VITALS: BP 106/67
[2017-08-03 13:14] LABS: PLATELET ESTIMATE NORMAL
[2017-08-03 16:00] VITALS: BP 115/57
[2017-08-03 20:00] VITALS: BP 103/58
[2017-08-03] MEDS ORDERED: MEDICATION NOT ON FORMULARY EA (Insulin Detemir (Levemir) 20 UNIT) SQ SCH (21:00)
[2017-08-03] MEDS ORDERED: ATORVASTATIN CALCIUM 10MG TABLET PO SCH (21:00)
[2017-08-03] MEDS ORDERED: ATENOLOL 50 MG TABLET PO SCH (21:00)
[2017-08-03] MEDS ORDERED: INSULIN GLARGINE UD 100 UNITS/ML SYR SUBCUT SCH (22:00)
[2017-08-04] VITALS: BP 114/75
[2017-08-04 04:00] VITALS: BP 103/62
[2017-08-04] MEDS: HYDROCODONE/ACETAMINOPHEN 10/325MG TABLET PO PRN (04:36)
[2017-08-04] MEDS: BLOOD SUGAR DIAGNOSTIC STRIP TEST SCH (06:11)
[2017-08-04] MEDS: INSULIN LISPRO 100 UNITS/ML SUBCUT SCH (06:21)
[2017-08-04 06:33] LABS: BASOPHILS % 0.5 % (0.0-2.0); HEMATOCRIT. 26.6 % (42.0-52.0); HEMOGLOBIN. 8.9 g/dL (14.0-18.0); LYMPHOCYTES % 23.1 % (20.0-50.0); MEAN CORPUSCULAR HEMOGLOBIN 35.3 pg (28.0-32.0); MEAN CORPUSCULAR VOLUME 105.9 fL (80.0-94.0); MEAN PLATELET VOLUME 7.5 fl (7.4-10.4); MONOCYTES % 11.3 % (2.0-8.0); NEUTROPHILS % 63.1 % (40.0-76.0); PLATELET 200 x1000/uL (130-400); RED BLOOD CELL COUNT 2.51 mill/uL (4.7-6.1); RED CELL DISTRIBUTION WIDTH 21.5 % (11.6-14.6)
[2017-08-04 08:00] VITALS: BP 107/70
[2017-08-04] MEDS: FOLIC ACID/VITAMIN B COMP W-C TABLET PO SCH (08:27)
[2017-08-04] MEDS: CINACALCET HCL 30MG TABLET PO SCH (08:27)
[2017-08-04] MEDS: CALCIUM ACETATE 667MG CAPSULE PO SCH (08:27)
[2017-08-04] MEDS: ASPIRIN 81MG EC TABLET PO SCH (08:28)
[2017-08-04] MEDS: AMLODIPINE 10MG TABLET PO SCH (08:28)
[2017-08-04] MEDS: PIOGLITAZONE 30MG TABLET PO SCH (08:28)
[2017-08-04 08:59] VITALS: BP 107/70
== END 2017-08-04 09:26 | disposition home or self-care (01) | DRG 299 ==
LOC: ER 08:44 → 8WST 13:44 → EDBEDREQSVC 22:31 → ENRESERV 23:52
PROVIDERS: ADMIT Internal Medicine; ATTEND Internal Medicine
PROC: 5A1D70Z Performance of Urinary Filtration, Intermittent, Less than 6 Hours Per Day (ICD-10-PCS; principal; 2017-08-03)
DX: E11.51 Type 2 diabetes mellitus with diabetic peripheral angiopathy without gangrene (principal); N18.6 End stage renal disease; I13.2 Hypertensive heart and chronic kidney disease with heart failure and with stage 5 chronic kidney disease, or end stage renal disease; E11.22 Type 2 diabetes mellitus with diabetic chronic kidney disease; K31.84 Gastroparesis; E11.43 Type 2 diabetes mellitus with diabetic autonomic (poly)neuropathy; I82.502 Chronic embolism and thrombosis of unspecified deep veins of left lower extremity; K92.2 Gastrointestinal hemorrhage, unspecified; D63.1 Anemia in chronic kidney disease; I50.9 Heart failure, unspecified; E78.5 Hyperlipidemia, unspecified; I25.10 Atherosclerotic heart disease of native coronary artery without angina pectoris; I70.202 Unspecified atherosclerosis of native arteries of extremities, left leg; Z83.3 Family history of diabetes mellitus; Z82.49 Family history of ischemic heart disease and other diseases of the circulatory system; Z79.4 Long term (current) use of insulin; Z99.2 Dependence on renal dialysis; Z95.1 Presence of aortocoronary bypass graft; Z79.899 Other long term (current) drug therapy
CPT/HCPCS: 36415; 73630; 80048; 80053; 80061; 82962; 84439; 84443; 84484; 85025; 85610; 85730; 90686; 93922; 93971; 96372; 96374; 99285; J1644; J1650; J1815; J2270

== ENCOUNTER 2017-10-13 04:55 | Inpatient (IN) | payer MEDICAID, MEDICARE ==
[~2017-10-13] VITALS: Ht 185.4 cm; Wt 99.8 kg
[2017-10-13] MEDS ORDERED: SODIUM CHLORIDE 0.9% 1000ML BAG (SEPSIS BOLUS) IV ONE (06:45)
[2017-10-13 07:16] LABS: CHLORIDE 99 mEq/L (98-107)
[2017-10-13 07:17] LABS: BASOPHILS % 0.4 % (0.0-2.0); EOSINOPHILS % 6.6 % (0.0-5.0); HEMATOCRIT. 25.6 % (42.0-52.0); HEMOGLOBIN. 8.3 g/dL (14.0-18.0); INR 1.1; LYMPHOCYTES % 13.8 % (20.0-50.0); MEAN CORPUSCULAR HEMOGLOBIN 30.2 pg (28.0-32.0); MEAN CORPUSCULAR VOLUME 93.3 fL (80.0-94.0); MEAN PLATELET VOLUME 7.3 fl (7.4-10.4); MONOCYTES % 6.4 % (2.0-8.0); NEUTROPHILS % 72.8 % (40.0-76.0); PLATELET 278 x1000/uL (130-400); PROTHROMBIN TIME 11.2 sec (9.4-11.6); RED BLOOD CELL COUNT 2.75 mill/uL (4.7-6.1); RED CELL DISTRIBUTION WIDTH 20.3 % (11.6-14.6)
[2017-10-13] MEDS ORDERED: VANCOMYCIN 1 G PREMIX 200 ML IV SCH (07:45)
[2017-10-13] MEDS ORDERED: PIPERACILLIN/TAZ 3.375G PREMIX 50 ML IV ONE (07:45)
[2017-10-13] MEDS ORDERED: PIPERACILLIN/TAZ 3.375G PREMIX 50 ML IV SCH (08:45)
[2017-10-13] MEDS ORDERED: LORAZEPAM 2MG/ML CPJ IV PRN (08:45)
[2017-10-13] MEDS ORDERED: ACETAMINOPHEN 325MG TABLET PO PRN (08:45)
[2017-10-13] MEDS ORDERED: NA PHOS,M-B/NA PHOS,DI-BA ENEMA 118ML PR PRN (08:45)
[2017-10-13] MEDS ORDERED: DOCUSATE SODIUM 100MG CAPSULE PO PRN (08:45)
[2017-10-13] MEDS ORDERED: ENOXAPARIN 40MG/0.4ML SYR SUBCUT SCH (08:45)
[2017-10-13] MEDS ORDERED: IPRATROPIUM/ALBUTEROL 0.5-3(2.5)MG/3ML NEB INH PRN (08:45)
[2017-10-13] MEDS ORDERED: CLONIDINE 0.1MG TABLET PO PRN (08:45)
[2017-10-13] MEDS ORDERED: DIPHENHYDRAMINE 50MG/ML VIAL IV PRN (08:45)
[2017-10-13] MEDS ORDERED: GUAIFENESIN 200MG/10ML SUGAR FREE UDC PO PRN (08:45)
[2017-10-13] MEDS ORDERED: MAGNESIUM/ALUMINUM HYDROXIDE/SIMETHICONE 30ML UDC PO PRN (08:45)
[2017-10-13] MEDS ORDERED: ONDANSETRON HCL 4MG/2ML VIAL ONE (09:54)
[2017-10-13] MEDS ORDERED: ONDANSETRON HCL 4MG/2ML VIAL IV ONE (10:00)
[2017-10-13] MEDS: SODIUM CHLORIDE 0.45% 1,000 ML IV SCH (11:30)
[2017-10-13] MEDS ORDERED: PIPERACILLIN/TAZ 2.25G PREMIX 50 ML IV SCH (15:00)
[2017-10-13] MEDS ORDERED: DEXTROSE 50% WATER 50ML SYRINGE IV PRN (15:30)
[2017-10-13 16:00] VITALS: BP 100/56
[2017-10-13] MEDS: BLOOD SUGAR DIAGNOSTIC STRIP TEST SCH ×2 (17:20→20:45)
[2017-10-13] MEDS: INSULIN LISPRO 100 UNITS/ML SUBCUT SCH ×2 (17:20→20:46)
[2017-10-13] MEDS: ASPIRIN 81MG EC TABLET PO SCH (17:42)
[2017-10-13] MEDS: ENOXAPARIN 30MG/0.3ML SYR SUBCUT SCH (17:43)
[2017-10-13 20:00] VITALS: BP 102/60
[2017-10-13] MEDS: PIPERACILLIN/TAZ 2.25G PREMIX 50 ML IV SCH (20:50)
[2017-10-13] MEDS ORDERED: EPOETIN ALFA 10000UNITS/ML VIAL SUBCUT SCH (21:00)
[2017-10-14] VITALS: BP 98/62
[2017-10-14] MEDS: PIPERACILLIN/TAZ 2.25G PREMIX 50 ML IV SCH ×3 (00:38→17:39)
[2017-10-14 04:00] VITALS: BP 97/66
[2017-10-14] MEDS: SODIUM CHLORIDE 0.45% 1,000 ML IV SCH (04:43)
[2017-10-14 06:21] LABS: BASOPHILS % 0.4 % (0.0-2.0); EOSINOPHILS % 11.4 % (0.0-5.0); HEMATOCRIT. 24.7 % (42.0-52.0); HEMOGLOBIN. 7.8 g/dL (14.0-18.0); LYMPHOCYTES % 15.3 % (20.0-50.0); MEAN CORPUSCULAR HEMOGLOBIN 29.8 pg (28.0-32.0); MEAN CORPUSCULAR VOLUME 94.4 fL (80.0-94.0); MEAN PLATELET VOLUME 7.4 fl (7.4-10.4); MONOCYTES % 5.9 % (2.0-8.0); PLATELET 209 x1000/uL (130-400); RED BLOOD CELL COUNT 2.61 mill/uL (4.7-6.1); RED CELL DISTRIBUTION WIDTH 20.2 % (11.6-14.6)
[2017-10-14] MEDS: BLOOD SUGAR DIAGNOSTIC STRIP TEST SCH ×4 (06:39→21:32)
[2017-10-14 08:00] VITALS: BP 106/45
[2017-10-14] MEDS: INSULIN LISPRO 100 UNITS/ML SUBCUT SCH ×4 (08:10→21:00)
[2017-10-14 08:18] LABS: CHLORIDE 100 mEq/L (98-107)
[2017-10-14 08:29] LABS: HDL CHOLESTEROL 29 mg/dL (40-59); LDL CHOLESTEROL 42 mg/dL (5-100); T4 FREE 1.31 ng/dL (0.76-1.46)
[2017-10-14] MEDS: ASPIRIN 81MG EC TABLET PO SCH (09:42)
[2017-10-14] MEDS: MORPHINE SULFATE 4 MG/ML CPJ (NOT FOR IM USE) IV PRN ×2 (11:07→15:30)
[2017-10-14 12:00] VITALS: BP 80/43
[2017-10-14] MEDS ORDERED: VANCOMYCIN 1500MG in DEXTROSE 5% WATER 250ML IV SCH (14:00)
[2017-10-14 16:00] VITALS: BP 109/58
[2017-10-14] MEDS: HYDROCODONE/ACETAMINOPHEN 10/325MG TABLET PO PRN (17:44)
[2017-10-14] MEDS: ENOXAPARIN 30MG/0.3ML SYR SUBCUT SCH (18:16)
[2017-10-14 20:00] VITALS: BP 93/45
[2017-10-15] VITALS (8 sets, daily range): BP systolic 87–111; BP diastolic 28–58
[2017-10-15] MEDS: PIPERACILLIN/TAZ 2.25G PREMIX 50 ML IV SCH ×3 (00:41→17:42)
[2017-10-15] MEDS: SODIUM CHLORIDE 0.45% 1,000 ML IV SCH ×2 (00:41→22:23)
[2017-10-15] MEDS: BLOOD SUGAR DIAGNOSTIC STRIP TEST SCH ×4 (06:02→21:00)
[2017-10-15] MEDS: INSULIN LISPRO 100 UNITS/ML SUBCUT SCH ×4 (08:10→21:00)
[2017-10-15] MEDS: ASPIRIN 81MG EC TABLET PO SCH (09:04)
[2017-10-15] MEDS: MORPHINE SULFATE 4 MG/ML CPJ (NOT FOR IM USE) IV PRN ×3 (10:07→22:38)
[2017-10-15] MEDS: ENOXAPARIN 30MG/0.3ML SYR SUBCUT SCH (17:42)
[2017-10-16] VITALS: BP 112/63
[2017-10-16] MEDS: PIPERACILLIN/TAZ 2.25G PREMIX 50 ML IV SCH ×2 (01:23→09:46)
[2017-10-16 04:00] VITALS: BP 102/52
[2017-10-16] MEDS: HYDROCODONE/ACETAMINOPHEN 10/325MG TABLET PO PRN (05:37)
[2017-10-16] MEDS: MORPHINE SULFATE 4 MG/ML CPJ (NOT FOR IM USE) IV PRN ×3 (06:08→16:15)
[2017-10-16] MEDS: BLOOD SUGAR DIAGNOSTIC STRIP TEST SCH ×3 (06:10→17:40)
[2017-10-16 08:00] VITALS: BP 108/65
[2017-10-16] MEDS: INSULIN LISPRO 100 UNITS/ML SUBCUT SCH ×3 (08:10→18:10)
[2017-10-16] MEDS ORDERED: NYSTATIN POWDER 15GM TOP SCH (09:00)
[2017-10-16] MEDS: ASPIRIN 81MG EC TABLET PO SCH (09:22)
[2017-10-16 10:11] LABS: BASOPHILS % 0.9 % (0.0-2.0); EOSINOPHILS % 6.8 % (0.0-5.0); HEMATOCRIT. 24.7 % (42.0-52.0); LYMPHOCYTES % 18.2 % (20.0-50.0); MEAN CORPUSCULAR HEMOGLOBIN 30.4 pg (28.0-32.0); MEAN CORPUSCULAR VOLUME 93.8 fL (80.0-94.0); MEAN PLATELET VOLUME 7.5 fl (7.4-10.4); MONOCYTES % 8.5 % (2.0-8.0); NEUTROPHILS % 65.6 % (40.0-76.0); PLATELET 204 x1000/uL (130-400); RED BLOOD CELL COUNT 2.63 mill/uL (4.7-6.1); RED CELL DISTRIBUTION WIDTH 20.7 % (11.6-14.6)
[2017-10-16 12:00] VITALS: BP 101/44
[2017-10-16 16:00] VITALS: BP 95/49
[2017-10-16] MEDS: ENOXAPARIN 30MG/0.3ML SYR SUBCUT SCH (18:00)
[2017-10-16 20:00] VITALS: BP 104/51
== END 2017-10-16 21:30 | DRG 871 ==
LOC: ER 04:55 → 7WST 12:51 → ENRESERV 12:51 → CANRESERV 12:51 → ENRESERV 14:49
PROVIDERS: ADMIT Internal Medicine; ATTEND Internal Medicine
PROC: 5A1D70Z Performance of Urinary Filtration, Intermittent, Less than 6 Hours Per Day (ICD-10-PCS; principal; 2017-10-14)
PROC: 5A1D70Z Performance of Urinary Filtration, Intermittent, Less than 6 Hours Per Day (ICD-10-PCS; 2017-10-16)
DX: A41.9 Sepsis, unspecified organism (principal); G93.41 Metabolic encephalopathy; I13.2 Hypertensive heart and chronic kidney disease with heart failure and with stage 5 chronic kidney disease, or end stage renal disease; E46 Unspecified protein-calorie malnutrition; K31.84 Gastroparesis; E11.43 Type 2 diabetes mellitus with diabetic autonomic (poly)neuropathy; E11.22 Type 2 diabetes mellitus with diabetic chronic kidney disease; I95.9 Hypotension, unspecified; N18.6 End stage renal disease; I50.40 Unspecified combined systolic (congestive) and diastolic (congestive) heart failure; Z99.2 Dependence on renal dialysis; D63.1 Anemia in chronic kidney disease; E78.5 Hyperlipidemia, unspecified; E86.0 Dehydration; E11.51 Type 2 diabetes mellitus with diabetic peripheral angiopathy without gangrene; I25.10 Atherosclerotic heart disease of native coronary artery without angina pectoris; Z79.4 Long term (current) use of insulin; Z79.82 Long term (current) use of aspirin; Z82.49 Family history of ischemic heart disease and other diseases of the circulatory system; Z83.3 Family history of diabetes mellitus; Z86.718 Personal history of other venous thrombosis and embolism; Z79.02 Long term (current) use of antithrombotics/antiplatelets; Z89.512 Acquired absence of left leg below knee; Z95.1 Presence of aortocoronary bypass graft; Z79.899 Other long term (current) drug therapy; Z68.29 Body mass index [BMI] 29.0-29.9, adult
CPT/HCPCS: 36415; 71045; 80048; 80053; 80061; 80202; 82962; 83605; 84439; 84443; 85025; 85610; 87040; 93005; 93306; A6261; C1893; J0885; J1650; J2270; J2405; J2543; J3370; J7030; J7040; J7060

== ENCOUNTER 2018-08-20 06:41 | Inpatient (IN) | payer MEDICARE, MEDICAID ==
[~2018-08-20] VITALS: Ht 185.4 cm; Wt 97.5 kg
[2018-08-20] MEDS ORDERED: ALTEPLASE 2MG/VIAL ITC NR (09:15)
[2018-08-20 09:18] LABS: BASOPHILS % 0.5 % (0.0-2.0); EOSINOPHILS % 3.3 % (0.0-5.0); HEMATOCRIT. 30.9 % (42.0-52.0); HEMOGLOBIN. 9.7 g/dL (14.0-18.0); LYMPHOCYTES % 24.7 % (20.0-50.0); MEAN CORPUSCULAR VOLUME 99.2 fL (80.0-94.0); MEAN PLATELET VOLUME 7.8 fl (7.4-10.4); MONOCYTES % 7.2 % (2.0-8.0); NEUTROPHILS % 64.3 % (40.0-76.0); PLATELET 197 x1000/uL (130-400); RED BLOOD CELL COUNT 3.12 mill/uL (4.7-6.1); RED CELL DISTRIBUTION WIDTH 22.1 % (11.6-14.6)
[2018-08-20 09:22] LABS: CHLORIDE 101 mEq/L (98-107)
[2018-08-20 09:25] LABS: PARTIAL THROMBOPLASTIN TIME 25.9 sec (23.4-31.0); PROTHROMBIN TIME 9.7 sec (9.1-11.1)
[2018-08-20] MEDS ORDERED: INSULIN REGULAR (HUMULIN R) 300UNITS/3ML IV ONE (09:30)
[2018-08-20] MEDS ORDERED: ALBUTEROL (0.083%) 2.5MG/3ML NEB HHN ONE (09:30)
[2018-08-20] MEDS ORDERED: CALCIUM GLUCONATE 100MG/ML 10ML VIAL IV ONE (09:30)
[2018-08-20] MEDS ORDERED: CEFAZOLIN 1000MG PREMIX 50 ML IV ONE (09:30)
[2018-08-20] MEDS ORDERED: DEXTROSE 50% WATER 50ML SYRINGE IV ONE (09:30)
[2018-08-20] MEDS ORDERED: SODIUM POLYSTYRENE SULFONATE 15 G/60 ML BOT PO ONE (09:30)
[2018-08-20] MEDS ORDERED: SODIUM BICARBONATE 8.4% 1 MEQ/ML 50ML SYR IV ONE (09:30)
[2018-08-20 09:47] LABS: PLATELET ESTIMATE NORMAL
[2018-08-20] MEDS ORDERED: LIDOCAINE HCL 1% 20ML VIAL (Pyxis) INJ ONE (11:00)
[2018-08-20] MEDS ORDERED: HEPARIN 1000 UNITS/ML 10ML ONE (11:01)
[2018-08-20] MEDS ORDERED: ACETAMINOPHEN 325MG TABLET PO PRN (11:30)
[2018-08-20] MEDS ORDERED: CLONIDINE 0.1MG TABLET PO PRN (11:30)
[2018-08-20] MEDS ORDERED: ONDANSETRON HCL 4MG/2ML INJ IV PRN (11:30)
[2018-08-20 21:30] VITALS: BP 169/90
[2018-08-21] VITALS (15 sets, daily range): BP systolic 127–170; BP diastolic 60–92
[2018-08-21] MEDS: HYDROCODONE/ACETAMINOPHEN 5/325MG TABLET PO PRN ×2 (00:29→18:14)
[2018-08-21] MEDS ORDERED: SODIUM POLYSTYRENE SULFONATE 15 G/60 ML BOT PO NR (02:00)
[2018-08-21] MEDS ORDERED: INSULIN REGULAR (HUMULIN R) 300UNITS/3ML IV NR (02:00)
[2018-08-21] MEDS ORDERED: DEXTROSE 50% WATER 50ML SYRINGE IV NR (02:00)
[2018-08-21] MEDS: IPRATROPIUM/ALBUTEROL 0.5-3(2.5)MG/3ML NEB INH SCH ×4 (04:05→20:14)
[2018-08-21] MEDS ORDERED: DEXTROSE 50% WATER 50ML SYRINGE IV PRN (05:45)
[2018-08-21] MEDS: BLOOD SUGAR DIAGNOSTIC STRIP TEST SCH ×4 (06:53→21:00)
[2018-08-21] MEDS: INSULIN LISPRO 100 UNITS/ML SUBCUT SCH ×4 (07:16→21:00)
[2018-08-21] MEDS ORDERED: CEFAZOLIN 1000MG PREMIX 50 ML IV ONE ×2 (07:30→07:39)
[2018-08-21] MEDS ORDERED: IOHEXOL-300 100 ML BOTTLE ONE (07:40)
[2018-08-21] MEDS ORDERED: LIDOCAINE HCL 1% 20ML VIAL (Pyxis) INJ ONE (07:40)
[2018-08-21] MEDS ORDERED: HEPARIN 1000 UNITS/ML 10ML ONE (07:40)
[2018-08-21] MEDS ORDERED: SODIUM BICARBONATE 4% (2.4MEQ) 5ML VIAL IV ONE (07:40)
[2018-08-21 08:21] LABS: BASOPHILS % 0.7 % (0.0-2.0); EOSINOPHILS % 2.8 % (0.0-5.0); HEMOGLOBIN. 10.5 g/dL (14.0-18.0); LYMPHOCYTES % 17.2 % (20.0-50.0); MEAN CORPUSCULAR HEMOGLOBIN 31.3 pg (28.0-32.0); MEAN CORPUSCULAR VOLUME 98.8 fL (80.0-94.0); MEAN PLATELET VOLUME 7.8 fl (7.4-10.4); MONOCYTES % 6.8 % (2.0-8.0); NEUTROPHILS % 72.5 % (40.0-76.0); PLATELET 222 x1000/uL (130-400); RED BLOOD CELL COUNT 3.34 mill/uL (4.7-6.1); RED CELL DISTRIBUTION WIDTH 22.6 % (11.6-14.6)
[2018-08-21 08:42] LABS: CHLORIDE 103 mEq/L (98-107)
[2018-08-21 08:50] LABS: LDL CHOLESTEROL 50 mg/dL (5-100)
[2018-08-21 08:52] LABS: HDL CHOLESTEROL 63 mg/dL (40-59)
[2018-08-21] MEDS ORDERED: ENOXAPARIN 30MG/0.3ML SYR SUBCUT SCH (09:00)
[2018-08-21] MEDS ORDERED: FENTANYL CITRATE/PF 50MCG/ML 2ML VIAL ONE (09:33)
[2018-08-21] MEDS ORDERED: MIDAZOLAM HCL 2 MG/2 ML VIAL ONE (09:55)
[2018-08-21] MEDS ORDERED: HEPARIN 5000 UNITS/ML VIAL IV ONE (12:45)
[2018-08-21] MEDS ORDERED: FENTANYL CITRATE/PF 50MCG/ML 2ML VIAL IV ONE (12:45)
[2018-08-21] MEDS ORDERED: MIDAZOLAM HCL 5 MG/ML VIAL IV ONE (12:45)
[2018-08-22 01:30] VITALS: BP 145/69
[2018-08-22 02:30] VITALS: BP 162/84
== END 2018-08-22 03:00 | DRG 252 ==
LOC: ER 06:41 → 8WST 12:06 → CANRESERV 19:49 → ENRESERV 19:49
PROVIDERS: ADMIT Internal Medicine Nephrology; ATTEND Internal Medicine Nephrology
PROC: 5A1D70Z Performance of Urinary Filtration, Intermittent, Less than 6 Hours Per Day (ICD-10-PCS; principal; 2018-08-20)
PROC: 05HY33Z Insertion of Infusion Device into Upper Vein, Percutaneous Approach (ICD-10-PCS; 2018-08-20)
PROC: B54NZZA Ultrasonography of Left Upper Extremity Veins, Guidance (ICD-10-PCS; 2018-08-20)
PROC: 05CY3ZZ Extirpation of Matter from Upper Vein, Percutaneous Approach (ICD-10-PCS; 2018-08-21)
PROC: 057Y3ZZ Dilation of Upper Vein, Percutaneous Approach (ICD-10-PCS; 2018-08-21)
PROC: 03CY3ZZ Extirpation of Matter from Upper Artery, Percutaneous Approach (ICD-10-PCS; 2018-08-21)
PROC: B5171ZZ Fluoroscopy of Left Subclavian Vein using Low Osmolar Contrast (ICD-10-PCS; 2018-08-21)
PROC: B51N1ZZ Fluoroscopy of Left Upper Extremity Veins using Low Osmolar Contrast (ICD-10-PCS; 2018-08-21)
PROC: B5181ZZ Fluoroscopy of Superior Vena Cava using Low Osmolar Contrast (ICD-10-PCS; 2018-08-21)
PROC: 5A1D70Z Performance of Urinary Filtration, Intermittent, Less than 6 Hours Per Day (ICD-10-PCS; 2018-08-22)
DX: T82.858A Stenosis of other vascular prosthetic devices, implants and grafts, initial encounter (principal); N18.6 End stage renal disease; I12.0 Hypertensive chronic kidney disease with stage 5 chronic kidney disease or end stage renal disease; T82.818A Embolism due to vascular prosthetic devices, implants and grafts, initial encounter; E11.22 Type 2 diabetes mellitus with diabetic chronic kidney disease; E11.43 Type 2 diabetes mellitus with diabetic autonomic (poly)neuropathy; E11.51 Type 2 diabetes mellitus with diabetic peripheral angiopathy without gangrene; E87.5 Hyperkalemia; G89.29 Other chronic pain; I25.10 Atherosclerotic heart disease of native coronary artery without angina pectoris; K31.84 Gastroparesis; Y83.2 Surgical operation with anastomosis, bypass or graft as the cause of abnormal reaction of the patient, or of later complication, without mention of misadventure at the time of the procedure; Z89.512 Acquired absence of left leg below knee; Z86.718 Personal history of other venous thrombosis and embolism; Z95.1 Presence of aortocoronary bypass graft; Z99.2 Dependence on renal dialysis; Z79.84 Long term (current) use of oral hypoglycemic drugs
CPT/HCPCS: 36415; 36556; 36905; 71045; 76937; 80061; 82962; 84132; 86850; 86900; 93005; 93970; 94640; 96374; 96375; 99152; 99153; 99285; C1725; C1752; C1766; C1769; C2630; J0610; J0690; J1644; J1815; J2250; J2405; J2997; J3010; J3490; J7050; J7611; J7620; Q9967; G0500

== ENCOUNTER 2019-01-14 12:46 | Inpatient (IN) | payer MEDICARE, MEDICAID ==
[~2019-01-14] VITALS: Ht 185.4 cm; Wt 106.3 kg
[~2019-01-14 12:46] MED LIST changes: -CALC667T5 PO; +CALC667T6 PO
[2019-01-14 14:38] LABS: BASOPHILS % 0.5 % (0.0-2.0); HEMATOCRIT. 39.4 % (42.0-52.0); HEMOGLOBIN. 12.2 g/dL (14.0-18.0); LYMPHOCYTES % 21.7 % (20.0-50.0); MEAN CORPUSCULAR HEMOGLOBIN 30.8 pg (28.0-32.0); MEAN CORPUSCULAR VOLUME 99.1 fL (80.0-94.0); MONOCYTES % 6.9 % (2.0-8.0); NEUTROPHILS % 69.9 % (40.0-76.0); PLATELET 167 x1000/uL (130-400); RED BLOOD CELL COUNT 3.97 mill/uL (4.7-6.1); RED CELL DISTRIBUTION WIDTH 21.1 % (11.6-14.6)
[2019-01-14 14:41] LABS: CHLORIDE 105 mEq/L (98-107)
[2019-01-14 14:56] LABS: PROTHROMBIN TIME 10.8 sec (9.6-11.0)
[2019-01-14] MEDS ORDERED: INSULIN REGULAR (HUMULIN R) 300UNITS/3ML IV ONE (15:00)
[2019-01-14] MEDS ORDERED: DEXTROSE 50% WATER 50ML SYRINGE IV ONE ×2 (15:00→15:25)
[2019-01-14] MEDS ORDERED: SODIUM BICARBONATE 8.4% 1 MEQ/ML 50ML SYR IV ONE (15:00)
[2019-01-14] MEDS ORDERED: SODIUM POLYSTYRENE SULFONATE 15 G/60 ML BOT PO ONE (15:00)
[2019-01-14] MEDS ORDERED: ALBUTEROL (0.083%) 2.5MG/3ML NEB HHN ONE (15:00)
[2019-01-14] MEDS ORDERED: CALCIUM CHLORIDE 1GM/10ML SYR IV ONE (15:00)
[2019-01-14 15:52] LABS: BG BASE EXCESS -4.3 mmol/L (-2.0-2.0); BG CARBOXYHEMOGLOBIN 0.4 % (0.5-1.5); BG DEOXYHEMOGLOBIN 5.5 % (0.0-5.0); BG HCO3 ACT 23.4 mmol/L (22.0-26.0); BG METHEMOGLOBIN 0.1 % (0.0-1.5); BG OXYGEN SATURATION 94.5 % (92.0-98.5); BG PCO2 54.8 mmHg (35.0-45.0); BG PH 7.249 (7.350-7.450); BG PO2 90.6 mmHg (75.0-100.0); BG SAMPLE SITE RIGHT RADIAL; BG VENT MODE NASAL CANNULA
[2019-01-14] MEDS ORDERED: DEXTROSE 50% WATER 50ML SYRINGE IV NR (19:02)
[2019-01-14 20:00] VITALS: BP 149/95
[2019-01-14] MEDS ORDERED: INSULIN REGULAR (HUMULIN R) UD 100 UNITS/ML SYR IV NR (20:00)
[2019-01-14] MEDS ORDERED: LIDOCAINE HCL 1% 20ML VIAL (Pyxis) INJ ONE (20:14)
[2019-01-14] MEDS ORDERED: HEPARIN 1000 UNITS/ML 10ML ONE (20:14)
[2019-01-14] MEDS ORDERED: MEDICATION NOT ON FORMULARY EA (Hydrocodone Bit/Acetaminophen (Hydrocodon-Acetaminophn 1 PO PRN (20:15)
[2019-01-14] MEDS ORDERED: LOPERAMIDE HCL 2MG CAPSULE PO PRN (20:30)
[2019-01-14] MEDS ORDERED: HYDROCODONE/ACETAMINOPHEN 10/325MG TABLET PO PRN (20:30)
[2019-01-14 21:00] VITALS: BP 149/95
[2019-01-14] MEDS: BLOOD SUGAR DIAGNOSTIC STRIP TEST SCH (21:00)
[2019-01-14] MEDS ORDERED: MEDICATION NOT ON FORMULARY EA (Insulin Detemir (Levemir) 20 UNIT) SQ SCH (21:00)
[2019-01-14] MEDS ORDERED: ATORVASTATIN CALCIUM 10MG TABLET PO SCH (21:00)
[2019-01-14 22:00] VITALS: BP 92/60
[2019-01-14] MEDS: CLONIDINE 0.1MG TABLET PO SCH (22:00)
[2019-01-14] MEDS ORDERED: INSULIN GLARGINE UD 100 UNITS/ML SYR SUBCUT SCH (22:00)
[2019-01-14] MEDS: INSULIN LISPRO 100 UNITS/ML SUBCUT SCH (22:45)
[2019-01-15] VITALS (11 sets, daily range): BP systolic 101–170; BP diastolic 63–98
[2019-01-15] MEDS: CLONIDINE 0.1MG TABLET PO SCH ×2 (06:01→13:00)
[2019-01-15 07:30] LABS: BASOPHILS % 0.6 % (0.0-2.0); EOSINOPHILS % 2.8 % (0.0-5.0); HEMATOCRIT. 37.2 % (42.0-52.0); HEMOGLOBIN. 11.4 g/dL (14.0-18.0); LYMPHOCYTES % 26.8 % (20.0-50.0); MEAN CORPUSCULAR HEMOGLOBIN 30.3 pg (28.0-32.0); MEAN CORPUSCULAR VOLUME 98.9 fL (80.0-94.0); MEAN PLATELET VOLUME 8.1 fl (7.4-10.4); NEUTROPHILS % 59.8 % (40.0-76.0); PLATELET 166 x1000/uL (130-400); RED BLOOD CELL COUNT 3.76 mill/uL (4.7-6.1); RED CELL DISTRIBUTION WIDTH 21.8 % (11.6-14.6)
[2019-01-15] MEDS ORDERED: PIOGLITAZONE 15MG TABLET PO SCH (07:30)
[2019-01-15] MEDS ORDERED: PNEUMOCOCCAL 23-VAL P-SAC VAC 0.5 ML IM ONE (08:00)
[2019-01-15] MEDS: BLOOD SUGAR DIAGNOSTIC STRIP TEST SCH ×3 (08:27→18:21)
[2019-01-15] MEDS: INSULIN LISPRO 100 UNITS/ML SUBCUT SCH ×3 (08:48→18:24)
[2019-01-15] MEDS ORDERED: METOCLOPRAMIDE HCL 10MG TABLET PO SCH (09:00)
[2019-01-15] MEDS ORDERED: ENOXAPARIN 30MG/0.3ML SYR SUBCUT SCH (09:00)
[2019-01-15] MEDS ORDERED: INSULIN ASPART U SQ SCH (09:00)
[2019-01-15] MEDS ORDERED: METOCLOPRAMIDE HCL 10 MG PO SCH (09:00)
[2019-01-15] MEDS ORDERED: AMLODIPINE 10MG TABLET PO SCH (09:00)
[2019-01-15] MEDS ORDERED: FOLIC ACID/VITAMIN B COMP W-C TABLET PO SCH (09:00)
[2019-01-15] MEDS ORDERED: PIOGLITAZONE HCL 30 MG PO SCH (09:00)
[2019-01-15] MEDS ORDERED: ASPIRIN 81MG EC TABLET PO SCH (13:00)
[2019-01-15] MEDS ORDERED: LOSARTAN POTASSIUM 25 MG TABLET PO SCH (13:00)
[2019-01-15] MEDS ORDERED: ATORVASTATIN CALCIUM 40MG TABLET PO SCH (21:00)
[2019-01-15] MEDS ORDERED: METOPROLOL TARTRATE 25MG TABLET PO SCH (21:00)
== END 2019-01-15 19:29 | DRG 640 ==
LOC: ER 12:46 → 5EST 15:28 → EDBEDREQ 15:32 → EDBEDREQTM 15:32 → CANRESERV 15:54 → ENRESERV 15:54 → EDBEDREQTM 17:01 → EDBEDREQSVC 17:01 → ENRESERV 17:35
PROVIDERS: ADMIT Internal Medicine Nephrology; ATTEND Internal Medicine Nephrology
PROC: 5A1D70Z Performance of Urinary Filtration, Intermittent, Less than 6 Hours Per Day (ICD-10-PCS; principal; 2019-01-14)
DX: E87.5 Hyperkalemia (principal); N18.6 End stage renal disease; I12.0 Hypertensive chronic kidney disease with stage 5 chronic kidney disease or end stage renal disease; E78.5 Hyperlipidemia, unspecified; E11.22 Type 2 diabetes mellitus with diabetic chronic kidney disease; D64.9 Anemia, unspecified; E11.51 Type 2 diabetes mellitus with diabetic peripheral angiopathy without gangrene; I25.10 Atherosclerotic heart disease of native coronary artery without angina pectoris; Z82.49 Family history of ischemic heart disease and other diseases of the circulatory system; Z86.718 Personal history of other venous thrombosis and embolism; Z89.512 Acquired absence of left leg below knee; Z91.15 Patient's noncompliance with renal dialysis; Z95.1 Presence of aortocoronary bypass graft; Z95.828 Presence of other vascular implants and grafts; Z99.2 Dependence on renal dialysis; Z89.511 Acquired absence of right leg below knee
CPT/HCPCS: 36415; 36600; 71045; 80048; 82375; 82805; 82962; 84132; 90732; 93005; 93970; 96374; 96375; 99291; J1644; J1815; J3490; J8597